=== PATIENT | female | born 1950 | race American Indian/Alaskan Native ===

== ENCOUNTER 2017-02-16 11:21 | Emergency (ER) | payer MEDICAID ==
[2017-02-16] MEDS ORDERED: CATAPRES PO ONE (18:16)
--- NOTE | 2017-02-16 19:52 | Emergency Department Report ---
Minor Respiratory - HPI Chief Complaint: Upper Respiratory Infection Stated Complaint: COLD Time Seen by Provider: 02/16/17 17:45 Duration: 1 week Severity: moderate Minor Respiratory: Yes Rhinorrhea, Yes Able to Tolerate Fluids, Yes Cough, Yes Fever, No Sore Throat, No Ear Pain, No Sick Contacts, No Hemoptysis, No Chest Pain, No Shortness of Breath Other History: This is a 66 y.o. female presents with cough, fever, and chills for 1 week. Patient states cough is productive at times. She is coughing up green sputum. She is taking nyquil and mucinex with minimal improvement. Admits to not taking blood pressure medication today. ED Review of Systems ROS: Stated complaint: COLD Other details as noted in HPI Constitutional: see HPI, chills, fever. denies: diaphoresis, malaise, weakness Eyes: denies: eye pain, eye discharge, vision change ENT: congestion. denies: ear pain, throat pain Respiratory: see HPI, cough. denies: orthopnea, shortness of breath, SOB with exertion, SOB at rest, stridor, wheezing Cardiovascular: denies: chest pain, palpitations Gastrointestinal: denies: abdominal pain, nausea, diarrhea Musculoskeletal: denies: back pain, joint swelling, arthralgia Neurological: denies: headache, weakness, paresthesias ED Past Medical Hx - Past Medical History Previous Medical History?: Yes Hx Hypertension: Yes Hx Arthritis: Yes Hx Psychiatric Treatment: Yes (Schizophrenia) - Surgical History Past Surgical History?: No - Social History Smoking Status: Current Every Day Smoker Substance Use Type: Non Opiate Pain, Prescribed - Medications Home Medications: Home Medications Medication Instructions Recorded Confirmed Last Taken Type traMADol [Ultram 50 MG tab] 50 mg PO Q6HR PRN #8 tablet 07/13/15 Unknown Rx Albuterol Sulfate [Proair 90 mcg IH Q4-6H #1 [email or web address] 02/16/17 Unknown Rx Respiclick] Azithromycin [Zithromax Z-ALFONSO] 250 mg PO DAILY 5 Days #6 tablet 02/16/17 Unknown Rx Benzonatate 200 mg PO TID #30 capsule 02/16/17 Unknown Rx Minor Respiratory Exam - Exam General: Vital signs noted. No distress. Alert and acting appropriately. HEENT: Yes Pharyngeal Erythema, Yes Rhinorrhea (turbinates swollen and red bilaterally, yellow discharge), No Pharyngeal Exudates, No Moist Mucous Membranes, No Conjuctival Injection, No Frontal Tenderness, No Maxillary Tenderness Ear: Neither TM Bulge, Neither TM Erythema, Neither EAC Pain, Neither EAC Discharge Neck: Yes Supple, No Adenopathy Lungs: Yes Good Air Exchange, Yes Wheezes, Yes Cough, No Ronchi, No Stridor, No Labored Respirations, No Retractions, No Use of Accessory Muscles, No Other Abnormal Lung Sounds Heart: Yes Regular, No Murmur Abdomen: Yes Normal Bowel Sounds, No Tenderness, No Peritoneal Signs Skin: No Rash, No Edema Neurologic: Alert and oriented, no deficits. Musculoskeletal: Unremarkable. ED Course Vital Signs 02/16/17 02/16/17 11:37 18:21 Temperature 98.1 F Pulse Rate 99 H 99 H Respiratory 20 Rate Blood Pressure 161/101 161/101 O2 Sat by Pulse 100 Oximetry ED Medical Decision Making - Medical Decision Making 66 y.o. female presents with cough that worse at night, fever, and chills. Taking mucinex and nyquil with minimal improvement. Elevated BP, didn't take lisinopril/HCTZ 20/25 today. Started on benzonatate, azithromycin, and albuterol for bronchitis. Discussed S/S of when to return to ER. Follow-up with PCP. Critical care attestation.: If time is entered above; I have spent that time in minutes in the direct care of this critically ill patient, excluding procedure time. ED Disposition Clinical Impression: Bronchitis Hypertension Qualifiers: Hypertension type: essential hypertension Qualified Code(s): I10 - Essential ( primary) hypertension Disposition: - TO HOME OR SELFCARE Is pt being admited?: No Does the pt Need Aspirin: No Condition: Stable Instructions: Acute Bronchitis (ED), Chronic Bronchitis (ED), Hypertension (ED) Additional Instructions: Wash hands frequently. The cough can last for 2-3 weeks. Use tylenol and ibuprofen should be taken with regular fluid intake. Continue taking lisinopril/HCTZ 20/25 mg po daily. Follow up with primary care provider. Seek medical attention if fever, headache, wheezing, or chest symptoms worsen. If drowsy or confused in the short term or if cough last longer than 4 weeks. Prescriptions: Albuterol Sulfate [Proair Respiclick] 90 mcg IH Q4-6H #1 aer.[email or web address] Azithromycin [Zithromax Z-ALFONSO] 250 mg PO DAILY 5 Days #6 tablet Benzonatate 200 mg PO TID #30 capsule Referrals: ELVIRA ARANDA MD [Primary Care Provider] - 3-5 Days Time of Disposition: 20:04 Print Language: LATVIAN
[2017-02-16 20:16] VITALS: BP 162/76
== END 2017-02-16 20:36 | disposition home or self-care (01) ==
LOC: ED 11:21
DX: J40 Bronchitis, not specified as acute or chronic (principal); I10 Essential (primary) hypertension; F17.200 Nicotine dependence, unspecified, uncomplicated; M19.90 Unspecified osteoarthritis, unspecified site; F20.9 Schizophrenia, unspecified; Z88.8 Allergy status to other drugs, medicaments and biological substances; Z91.018 Allergy to other foods
CPT/HCPCS: 99282